=== PATIENT | male | born 1970 | race African-American/Black ===

== ENCOUNTER 2017-09-09 15:54 | Emergency (ER) | payer BC ==
[~2017-09-09] VITALS: Ht 170.2 cm; Wt 106.0 kg
[2017-09-09 19:37] LABS: SOURCE URINE
[2017-09-09 19:44] LABS: APPEARANCE CLOUDY ((CLEAR)); BILIRUBIN NEGATIVE; BLOOD SMALL; COLOR YELLOW ((YELLOW)); GLUCOSE (STRIP) NEGATIVE; KETONES 5; LEUKOCYTES LARGE; NITRITE NEGATIVE; PROTEIN (STRIP) 30; SPECIFIC GRAVITY 1.025 (1.000-1.030); UROBILINOGEN 0.2 MG/DL (0.2-1.0)
[2017-09-09 20:52] LABS: EPITHELIAL CELLS RARE /HPF; MUCUS RARE /LPF; RED BLOOD CELLS 0-5 /HPF (0-5); WHITE BLOOD CELLS TNTC /HPF (0-5)
[2017-09-09 20:53] LABS: BACTERIA 1+ /HPF; UCUL ADDED? YES
[2017-09-09] MEDS ORDERED: KEFLEX500 MG PO (20:58)
[2017-09-09 21:19] VITALS: BP 167/98
[2017-09-11 12:16] LABS: CHLAMYDIA TRACHOMATIS NEGATIVE; NEISSERIA GONORRHOEAE POSITIVE
== END 2017-09-09 21:19 | disposition home or self-care (01) ==
LOC: EME 15:54
PROVIDERS: Nurse Practitioner Family
DX: N34.2 Other urethritis (principal); R36.9 Urethral discharge, unspecified; A54.9 Gonococcal infection, unspecified; I10 Essential (primary) hypertension
CPT/HCPCS: 81003; 87077; 87086; 87185; 87491; 87591; 99281; 99284; J0696